=== PATIENT | male | born 1970 | race Caucasian/White ===

== ENCOUNTER 2020-07-28 01:36 | Emergency (ER) | payer OTHER ==
[~2020-07-28] VITALS: Ht 167.6 cm; Wt 75.8 kg
[2020-07-28 01:40] VITALS: BP 159/101
[2020-07-28] MEDS ORDERED: CLEAR EYES REDN30 M1 OP (01:45)
[2020-07-28] MEDS ORDERED: POLYMYXIN B/TMP10 ML OPHTHALMIC (02:25)
== END 2020-07-28 03:00 | disposition home or self-care (01) ==
LOC: ER 01:36
DX: S05.01XA Injury of conjunctiva and corneal abrasion without foreign body, right eye, initial encounter (principal); X58.XXXA Exposure to other specified factors, initial encounter; Y93.89 Activity, other specified; Y92.89 Other specified places as the place of occurrence of the external cause; Y99.9 Unspecified external cause status